=== PATIENT | female | born 1980 | race Caucasian/White ===

== ENCOUNTER 2020-03-07 00:17 | Inpatient (IN) | payer OTHER, SELFPAY ==
[2020-03-07] VITALS (18 sets, daily range): BP systolic 105–153; BP diastolic 39–79; PULSE 58–130; RESP 15–20; TEMP 37.1–39.2; O2SAT 97–100; BMI 28.8
--- NOTE | ~2020-03-07 | CT_ITS ---
EXAMINATION: CT abdomen pelvis wo con DATE: 03/07/2020 01:56 INDICATION: Right flank pain. TECHNIQUE: Computed tomography (CT) of the abdomen and pelvis was performed without intravenous contr ast. Automated exposure control and iterative reconstruction technique were employed. The dose-length product was 699.43 mGy-cm. COMPARISON: None. FINDINGS: The visualized portions of the lung bases demonstrate minimal atelectasis. No pleural effus ion. The heart size is normal. No pericardial effusion. The liver, gallbladder, spleen, pancreas, and adrenal glands are normal. There are 5 stones in right kidney measuring up to 3 mm. There is mild ri ght hydronephrosis and hydroureter. The distal right ureter is not well visualized. There is a 2 mm c alcification in right pelvis. There is focal volume loss of left kidney. There is a 2.1 cm partially cystic mass in left kidney. There is a 1 mm left kidney stone. There are no dilated loops of bowel. T he appendix is normal. There is trace pelvic ascites. There are no pathologically enlarged lymph node s. There is mild thoracolumbar spondylosis. IMPRESSION: 1. Mild right hydronephrosis and hydroureter. A 2 mm calcification in right pelvis may be a ureteral stone or phlebolith. 2. Small bilateral nonobstructing kidney stones. 3. 2.1 cm partially cystic mass in left kidney, which may be a hemorrhagic cyst or a neoplasm. Abdome n MRI or CT without and with contrast is recommended. Reviewed, dictated and finalized at location [facility] IMPRESSION: 1. Mild right hydronephrosis and hydroureter. A 2 mm calcification in right pel vis may be a ureteral stone or phlebolith. 2. Small bilateral nonobstructing kidney stones. 3. 2.1 cm partially cystic mass in left kidney, which may be a hemorrhagic cyst or a neoplasm. Abdomen MRI or CT without and with contrast is recommended.
--- NOTE | ~2020-03-07 | MR_ITS ---
EXAMINATION: MR abdomen wo/w con DATE: 03/07/2020 14:31 INDICATION: Left renal cyst. TECHNIQUE: Magnetic resonance imaging (MRI) of the abdomen was performed without and with 17 mL Multi Gary intravenous contrast. Sequences included coronal T2-weighted FS FSE, coronal and axial FIESTA F S, coronal LAVA-flex, axial LAVA, axial T2-weighted FSE, axial T1-weighted dual-echo FSPGR, axial STI R FSE, and axial DWI. Postcontrast sequences included coronal LAVA-flex and a time course of axial LA VA. COMPARISON: CT abdomen and pelvis 03/07/2020 FINDINGS: The liver, gallbladder, spleen, pancreas, adrenal glands, and right kidney are normal. The left kidne y demonstrates a focal area of volume loss. Within this area, there is a 2.6 x 1.6 cm thick-walled cy stic mass. The wall demonstrates decreased T2-weighted signal intensity, intermediate T1-weighted sig nal intensity, and contrast enhancement. There are no dilated loops of bowel. There are no pathologic ally enlarged lymph nodes. There is no free intraperitoneal fluid. IMPRESSION: 1. 2.6 cm Bosniak type III cystic lesion of left kidney within an area of focal kidney volume loss. G iven the history of previous kidney stone procedure, correlation with outside imaging is recommended because chronic hematoma may have this appearance. Reviewed, dictated and finalized at location [facility] IMPRESSION: 1. 2.6 cm Bosniak type III cystic lesion of left kidney within an area of focal kidney volume loss. Given the history of previous kidney stone procedure, judi elation with outside imaging is recommended because chronic hematoma may have t his appearance.
--- NOTE | 2020-03-07 00:36 | ECG_ITS ---
Measurements Intervals [place] Rate: 115 P: 61 GA: 136 QRS: 70 QRSD: 94 T: -16 QT: 314 QTc: 435 Interpretive Statements SINUS TACHYCARDIA BORDERLINE ST-T WAVE ABNORMALITY- ANTEROLAT/INF LEADS BASELINE ARTIFACT- V3 ABNORMAL ECG Electronically Signed On 03-07-2020 8:47:21 [employer] MACHINIST by Stefan Merino D.O.
--- NOTE | 2020-03-07 00:36 | ED.FEVER ---
HPI - Fever General Chief Complaint: Fever Stated Complaint: low back pain, fever Time Seen by Provider: 03/07/20 00:35 Source: patient Mode of arrival: ambulatory Limitations: no limitations History of Present Illness HPI Narrative: Patient is a 39-year-old female who presents for evaluation of fever and right-sided flank pain. Patient states she started to have some dysuria and pressure with urination approximately 24 hours ago. Patient states this evening she developed fever as well as rigors. She has had nausea and one episode of emesis. Patient with history of urinary tract infection and pyelonephritis. She also has a history of nephrolithiasis in 2011. Patient reports dull, aching right-sided flank pain that is not colicky or sharp in nature. She denies any current cough or shortness of breath. Patient did take a dose of ibuprofen prior to arrival. Related Data Home Medications Medication Instructions Recorded Confirmed norgestrel-ethinyl estradiol tablet 03/07/20 [Cryselle (28)] norgestrel-ethinyl estradiol tablet 03/07/20 [Low-Ogestrel (28)] Allergies Allergy/AdvReac Type Severity Reaction Status Date / Time Sulfa (Sulfonamide Allergy Unknown Skin Verified 03/07/20 00:28 Antibiotics) Reaction Review of Systems Review of Systems: Narrative: CONSTITUTIONAL: Denies fever, chills, or sweats. EYES: Denies visual changes, redness, or discharge. ENT: Denies rhinorrhea, congestion, sore throat, or otalgia. CARDIOVASCULAR: Denies chest pain, palpitations, or edema. RESPIRATORY: Denies cough or dyspnea. GASTROINTESTINAL: Reports lower abdominal pain, nausea and vomiting GENITOURINARY: Reports dysuria SKIN: Denies rash or itching. MUSCULOSKELETAL: Denies back pain, joint pain, or myalgia. NEUROLOGIC: Denies headache, numbness, or weakness. PSYCHIATRIC: Denies anxiety or depression. FOR[facility]LY [facility] Past Medical History Medical History (Updated 03/07/20 @ 03:11 by Bhumika Petty MD) Nephrolithiasis Ovarian cyst Surgical History Surgical History (Updated 03/07/20 @ 00:57 by Bhumika Petty MD) H/O wisdom tooth extraction Hx of breast biopsy Social History Social History Smoking status: Never smoker Exam Narrative: Exam Narrative: GENERAL: Awake, alert, conversant HEAD: Normocephalic, atraumatic. EYES: PERRLA and EOMI. ENT: Nares clear, no rhinorrhea or epistaxis. Mucous membranes moist. NECK: Supple. CHEST: No respiratory distress, breathing even and non labored HEART: Tachycardic rate, sinus rhythm ABDOMEN:Non distended, mild suprapubic tenderness, positive right flank tenderness EXTREMITIES: Normal range of motion. No edema. SKIN: Febrile, warm, dry, no rash. NEURO:No focal deficits. Alert and oriented x3 Course Vital Signs Vital signs: Vital Signs Temperature 39.2 C H 03/07/20 00:24 Pulse Rate 130 H 03/07/20 00:24 Respiratory Rate 20 03/07/20 00:24 Blood Pressure 153/76 H 03/07/20 00:24 Pulse Oximetry 99 03/07/20 00:24 Temperature 37.2 C 03/07/20 02:07 Pulse Rate 105 H 03/07/20 02:07 Respiratory Rate 20 03/07/20 02:07 Blood Pressure 119/56 L 03/07/20 02:07 Pulse Oximetry 98 03/07/20 02:07 MDM - Fever MDM Narrative Medical decision making narrative: Patient presented for evaluation of dysuria, right-sided flank pain. At the time of assessment, patient is tachycardic and febrile. No hypotension. Symptoms came seem consistent with pyelonephritis given dysuria and right flank pain. She does have a history of nephrolithiasis several years ago. IV access obtained and labs are drawn. Patient was given a 30 mL/kg fluid bolus and IV Tylenol. Patient urinalysis consistent with urinary tract infection. Patient was given IV Rocephin. CT scan shows evidence of right-sided hydronephrosis, perinephric stranding. There was no obvious identifiable ureteral stone, however the ureters were not well identified and due to hydronephrosis present, radiologi
[2020-03-07 01:12] LABS: Basophils Percent Auto 0.2 % (0.2-1.2); Eosinophils Absolute Auto 0.1 K/mm3 (0-0.3); Eosinophils Percent Auto 0.4 % (0-4.4); Hematocrit 38.9 % (37.0-47.0); Hemoglobin 13.1 g/dL (12.0-15.0); Immature Granulocyte Absolute 0.06 K/mm3 (0.00-0.031); Immature Granulocyte Percent A 0.5 % (0-0.5); Lymphocytes Absolute Auto 0.65 K/mm3 (0.9-3.2); Lymphocytes Percent Auto 4.9 % (18.3-44.2); Mean Corpuscular HGB Conc 33.7 g/dl (32-36); Mean Corpuscular Volume 94.9 fl (80-100); Mean Platelet Volume 10.2 fl (7.4-10.4); Monocytes Absolute Auto 0.7 K/mm3 (0.1-0.6); Monocytes Percent Auto 5.5 % (2.6-8.5); Neutrophils Absolute Auto 11.7 K/mm3 (1.3-6.7); Neutrophils Percent Auto 88.5 % (45.5-73.1); Platelet Count Result 206 k/mm3 (150-375); Red Cell Distribution Width 12.5 % (11.5-14.5); White Blood Count 13.2 K/mm3 (4.5-10.0)
[2020-03-07 01:18] LABS: Lactic Acid Reflex 1.4 mmol/L (0.7-2.1)
[2020-03-07 01:20] LABS: Alanine Aminotransferase 14 U/L (4-35); Alkaline Phosphatase 70 U/L (38-126); Anion Gap 7 mmol/L (8-16); Aspartate Amino Transferase 19 U/L (14-36); Bilirubin,Total 0.7 mg/dL (0.2-1.3); Blood Urea Nitrogen 14 mg/dL (7-17); CRP 3.7 mg/dL (<1.0); Calcium 9.1 mg/dL (8.4-10.2); Carbon Dioxide 26 mmol/L (22-30); Chloride 105 mmol/L (98-107); Estimated CRCL calculation 83 ml/min; Estimated Glomerular Filt Rate > 60; Glucose 136 mg/dL (65-105); Potassium 4.5 mmol/L (3.4-5.0); Sodium 138 mmol/L (137-145)
[2020-03-07 01:41] LABS: Add Urine Microscopic? YES; Appearance Urine Clear (Clear); Bilirubin Urine Negative (Negative); Blood Urine 1+ (Negative); Color Urine Yellow (Yellow); Glucose Urine UA Negative (Negative); Ketones Urine Negative (Negative); Leukocyte Esterase Ur 1+ LEU/UL (Negative); Mucus Urine Rare /lpf; Nitrate Urine Negative (Negative); Protein Urine 1+ mg/dL (Negative); Specific Grav Ur 1.015 (1.001-1.035); Squamous Epithelial Cell Urine Rare /hpf (Few); Urobilinogen Urine Negative mg/dL (<2.0); WBC Urine 31-50 /hpf
--- NOTE | 2020-03-07 04:16 | PM.IMHP ---
H&P: HPI History of Present Illness Date/Time: 03/07/20 04:16 Chief complaint: Pyelonephritis, possible infected kidney stone Narrative: This is a 39 year old female who presented to the hospital with fever, bladder pressure, and b/l flank pain for the past day. She denies any gross hematuria or overt dysuria. She decided to come to the hospital tonight when she developed fever. Right sided flank pain radiates towards the front. The patient has a history of previous left sided renal stones that required lithotripsy at [facility]. Her last UTI was when she was a teenager. She denies any decreased urine output. Associated symptoms include nausea and vomiting. CT Abd/pelvis demonstrated right-sided hydronephrosis, perinephric stranding. There was no obvious identifiable ureteral stone, however the ureters were not well identified and due to hydronephrosis present, radiologist could not rule out a infected kidney stone. She has been started on IV antibiotics. Urology, Dr. Santiago has been consulted by ER provider. Review of Systems Review of Systems: All systems reviewed & are unremarkable except as noted in HPI and below PMFSH Past Medical History Medical History (Updated 03/07/20 @ 05:44 by Corey Singleton MD) Nephrolithiasis Ovarian cyst Surgical History Surgical History (Updated 03/07/20 @ 00:57 by Bhumika Petty MD) H/O wisdom tooth extraction Hx of breast biopsy Family History Family History (Updated 03/07/20 @ 05:39 by Stevie Martinez RN) Mother Breast cancer Grandparent Diabetes mellitus Acute myocardial infarction Congestive heart failure Hypertension Non-Hodgkin lymphoma Social History Social History Smoking status: Never smoker Alcohol intake: current Drinks per week: 1 Substance use: never Substance use type: does not use Gender identity (if verbalized by the patient): Female Sexual Orientation (if Verbalized by the Patient): Straight or Heterosexual Spiritual care concerns: No Meds Home Medications and Allergies Home Medications Medication Instructions Recorded Confirmed Type Vitamin D3 5,000 unit PO WEEKLY 03/07/20 03/07/20 History norgestrel-ethinyl estradiol tablet 03/07/20 History [Cryselle (28)] norgestrel-ethinyl estradiol tablet 03/07/20 History [Low-Ogestrel (28)] Allergies Allergy/AdvReac Type Severity Reaction Status Date / Time Sulfa (Sulfonamide Allergy Unknown Skin Verified 03/07/20 05:29 Antibiotics) Reaction Vital Signs Vital Signs - 24 hr 03/07/20 00:24 03/07/20 01:02 03/07/20 02:07 Temperature 39.2 C H 37.2 C Pulse Rate 130 H 124 H 105 H Respiratory Rate 20 20 20 Blood Pressure 153/76 H 130/79 119/56 L Pulse Oximetry 99 97 98 03/07/20 02:15 03/07/20 02:17 03/07/20 02:30 Temperature Pulse Rate 98 102 H 100 Respiratory Rate 20 20 20 Blood Pressure 105/55 L Pulse Oximetry 98 98 98 03/07/20 02:31 03/07/20 03:02 03/07/20 03:17 Temperature Pulse Rate 100 103 H 96 Respiratory Rate 19 16 17 Blood Pressure 111/54 L Pulse Oximetry 97 98 98 03/07/20 03:30 03/07/20 03:45 03/07/20 04:02 Temperature Pulse Rate 101 H 95 110 H Respiratory Rate 17 19 15 Blood Pressure Pulse Oximetry 98 98 98 Exam Const: General: cooperative, alert, awake and other (febrile to touch++ ) Nutritional Appearance: well nourished Orientation/consciousness: patient oriented x3 HENMT: Head: normal to inspection General nose exam: Normal external nose present Face and sinus: normal facial exam Mouth: Yes Normal oral and palatal mucosa present and Yes oropharynx normal Eyes: Pupils: Equal, round and reactive pupils present EOM: EOMs intact bilaterally Neck: Neck: supple and no JVD Thyroid: thyroid normal Lymphatic: lymphadenopathy not noted Resp: Effort & Inspection: normal respiratory effort Auscultation: clear to auscultation bilaterally Cardio: Rate: tachycardic Rh
[2020-03-07] MEDS: ACETAMINOPHEN 325 MG TABLET 650 MG PO ×5 (05:14→23:59)
--- NOTE | 2020-03-07 05:36 | ADMGEN ---
This patient, Halle Mueller, was admitted to 3 [facility] Surg Room 317-01. Patient/family oriented to hospital policies and general routines including ID bracelet, bed and alarms, visiting hours, pain management, procedures, bathroom and other care routines, personal items, smoking policy, room service/diet, and visiting hours. Information on how to activate the Rapid Response Team has been discussed. Patient/Family are encouraged to report perceived risks to care and to ask questions if they do not understand what they are told or what they should do.
[2020-03-07] MEDS: SODIUM CHLORIDE 0.9% IV 1,000 ML 125 ML IV CONT (06:01)
[2020-03-07 06:45] LABS: Basophils Percent Auto 0.1 % (0.2-1.2); Eosinophils Percent Auto 0.1 % (0-4.4); Hematocrit 33.6 % (37.0-47.0); Hemoglobin 11.2 g/dL (12.0-15.0); Immature Granulocyte Absolute 0.05 K/mm3 (0.00-0.031); Immature Granulocyte Percent A 0.4 % (0-0.5); Lymphocytes Absolute Auto 0.42 K/mm3 (0.9-3.2); Lymphocytes Percent Auto 3.6 % (18.3-44.2); Mean Corpuscular HGB Conc 33.3 g/dl (32-36); Mean Corpuscular Hemoglobin 31.5 pg (26-34); Mean Corpuscular Volume 94.4 fl (80-100); Mean Platelet Volume 10.2 fl (7.4-10.4); Monocytes Absolute Auto 0.4 K/mm3 (0.1-0.6); Monocytes Percent Auto 3.7 % (2.6-8.5); Neutrophils Absolute Auto 10.7 K/mm3 (1.3-6.7); Neutrophils Percent Auto 92.1 % (45.5-73.1); Platelet Count Result 168 k/mm3 (150-375); Red Blood Count 3.56 M/mm3 (4.2-5.4); Red Cell Distribution Width 12.3 % (11.5-14.5); White Blood Count 11.6 K/mm3 (4.5-10.0)
[2020-03-07 06:57] LABS: Anion Gap 9 mmol/L (8-16); Blood Urea Nitrogen 9 mg/dL (7-17); Calcium 7.5 mg/dL (8.4-10.2); Carbon Dioxide 20 mmol/L (22-30); Chloride 108 mmol/L (98-107); Estimated CRCL calculation 107 ml/min; Estimated Glomerular Filt Rate > 60; Glucose 135 mg/dL (65-105); Potassium 3.8 mmol/L (3.4-5.0); Sodium 137 mmol/L (137-145)
--- NOTE | 2020-03-07 07:16 | WPDURCON ---
Assessment and Plan Assessment and plan (1) Pyelonephritis: Code(s): N12 - Tubulo-interstitial nephritis, not specified as acute or chronic Status: Acute Assessment and Plan: I do not see any significant hydronephrosis. I do not see an obstructing ureteral stone. Would treat with broad-spectrum antibiotics and tailored to p.o. antibiotics for 14 days once culture has returned. (2) Abnormal urinalysis: Code(s): R82.90 - Unspecified abnormal findings in urine Status: Acute Assessment and Plan: Urine culture is pending. Continue broad-spectrum antibiotics (3) Right renal stone: Code(s): N20.0 - Calculus of kidney Status: Acute Assessment and Plan: Punctate and nonobstructing. She has a history of nephrolithiasis requiring lithotripsy in the past. This current small stone requires treatment. Urology Consult Note HPI Date Seen: 03/07/20 Requesting Physician: Corey Singleton MD Primary Care Provider: Taylor Simons DO Consult Narrative Narrative: Halle Mueller is a 39 year old female who has a previous history of nephrolithiasis. Several years ago she underwent lithotripsy by 1 of my partners in [place]. She started having fever on Saturday night at about 11:00 p.m.. This is associated with some urgency and some right greater than left flank pain. 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 However fevers returned. After discussion with colleagues she decided it was best to come to the hospital to get evaluated. A CT scan was done. The report is not official or in the chart but the official reading had some conflicting information. It reported mild right hydronephrosis but could not rule out ureteral stone due to the lack of ureteralnephrosis. I have looked at the CAT scan myself. I do not see significant hydronephrosis. I do not see significant perinephric stranding. I do not see ureteral stone. She does have a punctate right renal stone which is nonobstructing. She is admitted with antibiotics. Her flank pain has improved. She does not have significant history of recurring urinary tract infections Review of Systems Review of Systems: All systems reviewed & are unremarkable except as noted in HPI and below PMFSH Past Medical History Medical History (Updated 03/07/20 @ 07:20 by Paolo Santiago MD) Nephrolithiasis Ovarian cyst Surgical History Surgical History (Updated 03/07/20 @ 00:57 by Bhumika Petty MD) H/O wisdom tooth extraction Hx of breast biopsy Family History Family History (Updated 03/07/20 @ 05:39 by Stevie Martinez RN) Mother Breast cancer Grandparent Diabetes mellitus Acute myocardial infarction Congestive heart failure Hypertension Non-Hodgkin lymphoma Social History Social History Smoking status: Never smoker Alcohol intake: current Drinks per week: 1 Substance use: never Substance use type: does not use Gender identity (if verbalized by the patient): Female Sexual Orientation (if Verbalized by the Patient): Straight or Heterosexual Spiritual care concerns: No Meds Home Medications and Allergies Home Medications Medication Instructions Recorded Confirmed Type Vitamin D3 5,000 unit PO WEEKLY 03/07/20 03/07/20 History norgestrel-ethinyl estradiol 1 tablet PO DAILY 03/07/20 03/07/20 History [Cryselle (28)] norgestrel-ethinyl estradiol 1 tablet PO DAILY 03/07/20 03/07/20 History [Low-Ogestrel (28)] Allergies Allergy/AdvReac Type Severity Reaction Status Date / Time Sulfa (Sulfonamide Allergy Unknown Skin Verified 03/07/20 05:29 Antibiotics) Reaction Vital Signs Vital Signs - 24 hr 03/07/20 00:24 03/07/20 01:02 03/07/20 02:07 Temperature 102.5 F H 98.9 F Pulse Rate 130 H 124 H 105 H Respiratory Rate 20 20 20 Blood Pressure 153/76 H 130/79 119/56 L Pulse Oximetry 99 97 98 03/07/20 02:15 03/07/20 02:17
[2020-03-07] MEDS: ONDANSETRON INJ 4 MG/2 ML VIAL IV PUSH (10:37)
--- NOTE | 2020-03-07 11:38 | PM.IMPN ---
Progress Note: A&P Assessment and Plan (1) Sepsis: Code(s): A41.9 - Sepsis, unspecified organism Status: Acute Assessment and Plan: Supported by fever, leukocytosis, tachycardia. The source of sepsis appears to be urinary. Continue IV ceftriaxone. Lactic acid was 1.4. She has received IV fluid rehydration and she is going to try clear liquids for lunch. Blood and urine cultures were obtained and are pending. Monitor acid-base status and urine output. (2) Pyelonephritis: Code(s): N12 - Tubulo-interstitial nephritis, not specified as acute or chronic Status: Acute Assessment and Plan: She reports right flank pain and urgency. Urinalysis is suspicious for UTI. Continue IV antibiotics, IV fluids, pain control as needed, antiemetics and antipyretics. Urine culture pending. (3) Leukocytosis: Code(s): D72.829 - Elevated white blood cell count, unspecified Status: Acute Assessment and Plan: Secondary to pyelonephritis. WBC is improving. Continue to monitor CBC daily. (4) Hydronephrosis: Code(s): N13.30 - Unspecified hydronephrosis Status: Acute Assessment and Plan: Urology has been consulted by ER provider. Continue Urology recommendations. (5) Left kidney mass: Code(s): N28.89 - Other specified disorders of kidney and ureter Status: Acute Assessment and Plan: CT abd/pelvis showed 2.1 cm partially cystic mass in left kidney, which may be a hemorrhagic cyst or a neoplasm. Further evaluation was recommended so MRI abd/pelvis will be ordered. Subjective Date/time seen: 03/07/20 11:38 Mrs. Mueller is a 39 y.o. female with PMH significant for nephrolithiasis who is seen in follow-up for pyelonephritis. She is still having fevers and chills. Her pain has improved. She reports urinary urgency. She denies leg swelling and pain. She denies chest pain and dyspnea. She is not having any nausea and vomiting. She would like to try clear liquids today. Review of Systems Review of Systems: All systems reviewed & are unremarkable except as noted in HPI and below Exam Narrative: Exam Narrative: General: Well-developed, well-nourished, and ill-appearing 39 y.o. female who is lying semi-recumbent in bed in no acute distress. HEENT: Normocephalic and atraumatic. Oral mucosa moist. Neck: Supple. Cardiac: Regular rate and rhythm. S1 and S2 normal. Lungs: Lungs are clear to auscultation bilaterally. Abdomen: Bowel sounds are normoactive. Abdomen is soft, non-distended, and mildly tender in the right upper quadrant and suprapubic area. : No CVA tenderness. Extremities: No lower extremity edema. Palpable DP and PT bilaterally. Neurological: Alert. Exam non-focal to casual conversation. Speech is clear. Skin: febrile to touch. No rashes or lesions. Psychiatric: Judgment and insight intact. Pleasant mood and appropriate affect. Objective Data Vital Signs Vital Signs: Vital Signs - 24 hr 03/07/20 00:24 03/07/20 01:02 03/07/20 02:07 Temperature 102.5 F H 98.9 F Pulse Rate 130 H 124 H 105 H Respiratory Rate 20 20 20 Blood Pressure 153/76 H 130/79 119/56 L Pulse Oximetry 99 97 98 03/07/20 02:15 03/07/20 02:17 03/07/20 02:30 Temperature Pulse Rate 98 102 H 100 Respiratory Rate 20 20 20 Blood Pressure 105/55 L Pulse Oximetry 98 98 98 03/07/20 02:31 03/07/20 03:02 03/07/20 03:17 Temperature Pulse Rate 100 103 H 96 Respiratory Rate 19 16 17 Blood Pressure 111/54 L Pulse Oximetry 97 98 98 03/07/20 03:30 03/07/20 03:45 03/07/20 04:02 Temperature Pulse Rate 101 H 95 110 H Respiratory Rate 17 19 15 Blood Pressure Pulse Oximetry 98 98 98 03/07/20 05:18 03/07/20 05:33 Temperature 98.8 F 98.8 F Pulse Rate 58 L 58 L Respiratory Rate 20 20 Blood Pressure 122/39 L 122/39 L Pulse Oximetry 100 100 Intake/Output Intake/Output: Intake & Output 03/04/20 03/05/20 03/06/20
[2020-03-07] MEDS: SODIUM CHLORIDE 0.9% IV 1,000 ML 75 ML IV CONT (13:09)
[2020-03-07] MEDS: KETOROLAC 30 MG/ML VIAL (*BKC) IV PUSH (23:11)
[2020-03-08] VITALS (8 sets, daily range): BP systolic 108–134; BP diastolic 65–85; PULSE 84–107; RESP 16–18; TEMP 36.8–38.2; O2SAT 100
[2020-03-08] MEDS: SODIUM CHLORIDE 0.9% IV 1,000 ML 75 ML IV CONT ×2 (01:19→15:44)
[2020-03-08 06:42] LABS: Basophils Percent Auto 0.2 % (0.2-1.2); Eosinophils Percent Auto 0.3 % (0-4.4); Hematocrit 33.6 % (37.0-47.0); Hemoglobin 10.9 g/dL (12.0-15.0); Immature Granulocyte Absolute 0.09 K/mm3 (0.00-0.031); Immature Granulocyte Percent A 0.8 % (0-0.5); Lymphocytes Percent Auto 7.6 % (18.3-44.2); Mean Corpuscular HGB Conc 32.4 g/dl (32-36); Mean Corpuscular Hemoglobin 31.1 pg (26-34); Mean Corpuscular Volume 95.7 fl (80-100); Mean Platelet Volume 10.4 fl (7.4-10.4); Monocytes Absolute Auto 0.8 K/mm3 (0.1-0.6); Monocytes Percent Auto 6.7 % (2.6-8.5); Neutrophils Absolute Auto 10.1 K/mm3 (1.3-6.7); Neutrophils Percent Auto 84.4 % (45.5-73.1); Platelet Count Result 164 k/mm3 (150-375); Red Blood Count 3.51 M/mm3 (4.2-5.4); Red Cell Distribution Width 12.7 % (11.5-14.5); White Blood Count 11.9 K/mm3 (4.5-10.0)
[2020-03-08 07:18] LABS: Anion Gap 6 mmol/L (8-16); Blood Urea Nitrogen 6 mg/dL (7-17); Calcium 7.8 mg/dL (8.4-10.2); Carbon Dioxide 22 mmol/L (22-30); Chloride 108 mmol/L (98-107); Estimated CRCL calculation 107 ml/min; Estimated Glomerular Filt Rate > 60; Glucose 113 mg/dL (65-105); Potassium 3.8 mmol/L (3.4-5.0); Sodium 136 mmol/L (137-145)
[2020-03-08 07:33] LABS: CRP 21.6 mg/dL (<1.0)
[2020-03-08] MEDS: KETOROLAC 30 MG/ML VIAL (*BKC) IV PUSH ×2 (09:37→23:03)
--- NOTE | 2020-03-08 13:18 | PM.IMPN ---
Progress Note: A&P Assessment and Plan (1) Sepsis: Code(s): A41.9 - Sepsis, unspecified organism Status: Acute Assessment and Plan: Supported by fever, leukocytosis, tachycardia. The source of sepsis appears to be urinary. Continue IV ceftriaxone. Lactic acid was 1.4. She has received IV fluid rehydration and she is going to try clear liquids for lunch. Blood and urine cultures were obtained and are pending. Monitor acid-base status and urine output. (2) Pyelonephritis: Code(s): N12 - Tubulo-interstitial nephritis, not specified as acute or chronic Status: Acute Assessment and Plan: She reports right flank pain and urgency.Improving. Urine culture pending. (3) Leukocytosis: Code(s): D72.829 - Elevated white blood cell count, unspecified Status: Acute Assessment and Plan: Secondary to pyelonephritis. WBC is improving. (4) Hydronephrosis: Code(s): N13.30 - Unspecified hydronephrosis Status: Acute Assessment and Plan: See above. Continue Urology recommendations. (5) Left kidney mass: Code(s): N28.89 - Other specified disorders of kidney and ureter Status: Acute Assessment and Plan: CT abd/pelvis showed 2.1 cm partially cystic mass in left kidney, which may be a hemorrhagic cyst or a neoplasm. likely hematoma, follow urology recommendations. Subjective Date/time seen: 03/08/20 13:18 Interval history: Mrs. Mueller is a 39 y.o. female with PMH significant for nephrolithiasis who is seen in follow-up for R pyelonephritis. 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 Urology consulted continue IV abx until cultures are back then change to oral ABX. Pt is known to have a left renal mass since 2011. CT here shows 2.1 cm partially cystic mass in left kidney. There is a 1 mm left kidney stone. pt has seen MDs in [facility] for this. Pt had lithotripsy there. Pt can follow there if she wishes to later or can follow here. Review of Systems Review of Systems: All systems reviewed & are unremarkable except as noted in HPI and below Exam Narrative: Exam Narrative: General: Well-developed younger lady. HEENT: Normocephalic Cardiac: Regular rate and rhythm. S1 and S2 normal. Lungs: Lungs are clear to auscultation bilaterally. Abdomen: Bowel sounds are normoactive. Abdomen is soft, non-distended, no CVA tenderness Extremities: No lower extremity edema. Neurological: Alert. Exam non-focal to casual conversation. Speech is clear. Skin: febrile to touch. No rashes or lesions. Psychiatric: Judgment and insight intact. Pleasant mood and appropriate affect. Objective Data Vital Signs Vital Signs: Vital Signs - 24 hr 03/07/20 14:00 03/07/20 14:50 03/07/20 22:00 Temperature 37.4 C 38.3 C H 37.1 C Pulse Rate 86 110 H Respiratory Rate 18 18 Blood Pressure 140/69 115/56 L Pulse Oximetry 99 99 03/07/20 23:59 03/08/20 00:59 03/08/20 05:45 Temperature 38.2 C H 37.1 C 36.8 C Pulse Rate 84 Respiratory Rate 18 Blood Pressure 108/65 Pulse Oximetry 100 Intake/Output Intake/Output: Intake & Output 03/05/20 03/06/20 03/07/20 03/08/20 23:59 23:59 23:59 23:59 Intake Total 4130 1720 Output Total 900 300 Balance 3230 1420 Meds/Results Medications: Active Medications Generic Name Dose Route Start Last Admin Trade Name Freq PRN Reason Stop Dose Admin Acetaminophen 650 mg 03/07/20 04:30 03/07/20 23:59 Acetaminophen 325 Mg Tablet PO 650 mg Q4H PRN Administration Mild Pain (1-3) or Fever Sodium Chloride 1,000 mls @ 75 mls/hr 03/07/20 03:35 03/08/20 12:13 Normal Saline Iv IV CONT 0 mls/hr .[id number] ABIDA Infusion Ceftriaxone Sodium/Dextrose 1 gm in 50 mls @ 100 mls/hr 03/08/20 02:00 03/08/20 01:49 Rocephin 1 Gm/D5w 50 Ml IVPB Infused Q24H ABIDA Infusion Ketorolac Tromethamine 30 mg 03/07/20 23:04 03/08/20 09:37 Ketorol
[2020-03-08] MEDS: ACETAMINOPHEN 325 MG TABLET 650 MG PO ×2 (15:45→23:02)
[2020-03-09] MEDS: SODIUM CHLORIDE 0.9% IV 1,000 ML 75 ML IV CONT ×2 (05:45→21:52)
[2020-03-09 06:00] VITALS: BP 110/47; PULSE 76; RESP 16; TEMP 36.7; O2SAT 100
[2020-03-09 06:24] LABS: Hemoglobin 10.4 g/dL (12.0-15.0); Mean Corpuscular HGB Conc 32.5 g/dl (32-36); Mean Corpuscular Hemoglobin 31.1 pg (26-34); Mean Corpuscular Volume 95.8 fl (80-100); Mean Platelet Volume 10.2 fl (7.4-10.4); Platelet Count Result 160 k/mm3 (150-375); Red Blood Count 3.34 M/mm3 (4.2-5.4); Red Cell Distribution Width 12.5 % (11.5-14.5); White Blood Count 7.6 K/mm3 (4.5-10.0)
[2020-03-09 06:43] LABS: Anion Gap 4 mmol/L (8-16); Blood Urea Nitrogen 6 mg/dL (7-17); Calcium 7.6 mg/dL (8.4-10.2); Carbon Dioxide 23 mmol/L (22-30); Chloride 110 mmol/L (98-107); Estimated CRCL calculation 123 ml/min; Estimated Glomerular Filt Rate > 60; Glucose 106 mg/dL (65-105); Potassium 3.8 mmol/L (3.4-5.0); Sodium 137 mmol/L (137-145)
--- NOTE | 2020-03-09 12:42 | WPDUROPN2 ---
Progress Note: A&P Assessment and Plan (1) Pyelonephritis: Code(s): N12 - Tubulo-interstitial nephritis, not specified as acute or chronic Status: Acute Assessment and Plan: UC with pansensitive E Coli. Blood cultures pending. ONce afebrile 24 hours and BC results neg can discharge with oral abx. (2) Left kidney mass: Code(s): N28.89 - Other specified disorders of kidney and ureter Status: Acute Additional Plan MRI reveal complex lesion but had this lesion in 2011 and felt to be a complex cyst measuring 1.2 cm at the time. Will need re-imaging in about 3 months to confirm stability. Subjective Subjective Date/Time Seen: 03/09/20 12:42 Principal diagnosis: pyelonephritis Interval history: Feeling better but had a fever last night Review of Systems Review of Systems: All systems reviewed & are unremarkable except as noted in HPI and below Exam Const: General: cooperative Objective Data Vital Signs Vital Signs: Vital Signs - 24 hr 03/08/20 14:00 03/08/20 15:45 03/08/20 16:45 Temperature 37.1 C 37.7 C H 37.3 C Pulse Rate 102 H Respiratory Rate 18 Blood Pressure 115/65 Pulse Oximetry 100 03/08/20 19:04 03/08/20 22:00 03/08/20 23:02 Temperature 37.6 C H 38.2 C H 37.8 C H Pulse Rate 107 H Respiratory Rate 16 Blood Pressure 134/85 Pulse Oximetry 100 03/09/20 06:00 Temperature 36.7 C Pulse Rate 76 Respiratory Rate 16 Blood Pressure 110/47 L Pulse Oximetry 100 Intake/Output Intake/Output: Intake & Output 03/06/20 03/07/20 03/08/20 03/09/20 23:59 23:59 23:59 23:59 Intake Total 4130 3670 1660 Output Total 900 1600 700 Balance 3230 2070 960 Meds/Results Medications: Active Medications Generic Name Dose Route Start Last Admin Trade Name Freq PRN Reason Stop Dose Admin Acetaminophen 650 mg 03/07/20 04:30 03/08/20 23:02 Acetaminophen 325 Mg Tablet PO 650 mg Q4H PRN Administration Mild Pain (1-3) or Fever Sodium Chloride 1,000 mls @ 75 mls/hr 03/07/20 03:35 03/09/20 05:45 Normal Saline Iv IV CONT 75 mls/hr .[id number] ABIDA Administration Ceftriaxone Sodium/Dextrose 1 gm in 50 mls @ 100 mls/hr 03/08/20 02:00 03/09/20 04:01 Rocephin 1 Gm/D5w 50 Ml IVPB Infused Q24H ABIDA Infusion Morphine Sulfate 4 mg 03/07/20 03:34 Morphine Sulfate (*Crx) 4 Mg/Ml Inj IV PUSH Q2H PRN Pain Rated 7-10 Ondansetron HCl 4 mg 03/07/20 03:34 03/07/20 10:37 Ondansetron Inj 4 Mg/2 Ml Vial IV PUSH 4 mg Q4H PRN Administration Nausea Radiology Results: ITS Impressions Abdomen/Pelvis CT 03/07/20 08:40 IMPRESSION: 1. Mild right hydronephrosis and hydroureter. A 2 mm calcification in right pelvis may be a ureteral stone or phlebolith. 2. Small bilateral nonobstructing kidney stones. 3. 2.1 cm partially cystic mass in left kidney, which may be a hemorrhagic cyst or a neoplasm. Abdomen MRI or CT without and with contrast is recommended. Abdomen MRI 03/07/20 14:52 IMPRESSION: 1. 2.6 cm Bosniak type III cystic lesion of left kidney within an area of focal kidney volume loss. Given the history of previous kidney stone procedure, correlation with outside imaging is recommended because chronic hematoma may have this appearance. Labs Labs: Laboratory Results - last 24 hr 03/09/20 03/09/20 05:51 05:51 WBC 7.6 RBC 3.34 L Hgb 10.4 L Hct 32.0 L MCV 95.8 MCH 31.1 MCHC 32.5 RDW 12.5 Plt Count 160 MPV 10.2 Sodium 137 Potassium 3.8 Chloride 110 H Carbon Dioxide 23 Anion Gap 4 L BUN 6 L Creatinine 0.60 L Estim Creat Clear Calc 123 Estimated GFR > 60 Glucose 106 H Calcium 7.6 L Quality VTE Prophylaxis VTE prophylaxis: mechanical ordered
--- NOTE | 2020-03-09 12:56 | PM.IMPN ---
Progress Note: A&P Assessment and Plan (1) Sepsis: Code(s): A41.9 - Sepsis, unspecified organism Status: Acute Assessment and Plan: Supported by fever, leukocytosis, tachycardia. The source of sepsis appears to be urinary. Continue IV ceftriaxone. awaiting BC. And fever free state. (2) Pyelonephritis: Code(s): N12 - Tubulo-interstitial nephritis, not specified as acute or chronic Status: Acute Assessment and Plan: She reports right flank pain and urgency.Improving. Urine culture reported, BC is pending. (3) Leukocytosis: Code(s): D72.829 - Elevated white blood cell count, unspecified Status: Acute Assessment and Plan: Secondary to pyelonephritis. WBC is NL. (4) Hydronephrosis: Code(s): N13.30 - Unspecified hydronephrosis Status: Acute Assessment and Plan: See above. Continue Urology recommendations. (5) Left kidney mass: Code(s): N28.89 - Other specified disorders of kidney and ureter Status: Acute Assessment and Plan: CT abd/pelvis showed 2.1 cm partially cystic mass in left kidney, which may be a hemorrhagic cyst or a neoplasm. likely hematoma, follow urology recommendations. Subjective Date/time seen: 03/09/20 12:56 Interval history: Mrs. Mueller is a 39 y.o. female with PMH significant for nephrolithiasis who is seen in follow-up for R pyelonephritis. UC reported as ecoli. Pt is on iv rocephin, pt had a fever last night. 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 Urology consulted continue IV abx until blood cultures are back and pt is fever free for 24 hours, then change to oral ABX. Pt is known to have a left renal mass since 2011. CT here shows 2.1 cm partially cystic mass in left kidney. There is a 1 mm left kidney stone. pt has seen MDs in [facility] for this. Pt had lithotripsy there. Pt can follow there if she wishes to later or can follow here. Review of Systems Review of Systems: All systems reviewed & are unremarkable except as noted in HPI and below Exam Narrative: Exam Narrative: General: Well-developed younger lady. HEENT: Normocephalic Cardiac: Regular rate and rhythm. S1 and S2 normal. Lungs: Lungs are clear to auscultation bilaterally. Abdomen: Bowel sounds are normoactive. Abdomen is soft, non-distended, no CVA tenderness Extremities: No lower extremity edema. Neurological: Alert. Exam non-focal to casual conversation. Speech is clear. Skin: febrile to touch. No rashes or lesions. Psychiatric: Judgment and insight intact. Pleasant mood and appropriate affect. Objective Data Vital Signs Vital Signs: Vital Signs - 24 hr 03/08/20 14:00 03/08/20 15:45 03/08/20 16:45 Temperature 37.1 C 37.7 C H 37.3 C Pulse Rate 102 H Respiratory Rate 18 Blood Pressure 115/65 Pulse Oximetry 100 03/08/20 19:04 03/08/20 22:00 03/08/20 23:02 Temperature 37.6 C H 38.2 C H 37.8 C H Pulse Rate 107 H Respiratory Rate 16 Blood Pressure 134/85 Pulse Oximetry 100 03/09/20 06:00 Temperature 36.7 C Pulse Rate 76 Respiratory Rate 16 Blood Pressure 110/47 L Pulse Oximetry 100 Intake/Output Intake/Output: Intake & Output 03/06/20 03/07/20 03/08/20 03/09/20 23:59 23:59 23:59 23:59 Intake Total 4130 3670 1660 Output Total 900 1600 700 Balance 3230 2070 960 Meds/Results Medications: Active Medications Generic Name Dose Route Start Last Admin Trade Name Freq PRN Reason Stop Dose Admin Acetaminophen 650 mg 03/07/20 04:30 03/08/20 23:02 Acetaminophen 325 Mg Tablet PO 650 mg Q4H PRN Administration Mild Pain (1-3) or Fever Sodium Chloride 1,000 mls @ 75 mls/hr 03/07/20 03:35 03/09/20 05:45 Normal Saline Iv IV CONT 75 mls/hr .[id number] ABIDA Administration Ceftriaxone Sodium/Dextrose 1 gm in 50 mls @ 100 mls/hr 03/08/20 02:00 03/09/20 04:01 Rocephin 1 Gm/D5w 50 Ml IVPB Infused Q24H ABIDA I
[2020-03-09 14:00] VITALS: BP 124/64; PULSE 105; RESP 20; TEMP 37.3; O2SAT 100
[2020-03-09 21:56] VITALS: BP 137/79; PULSE 75; RESP 18; TEMP 37; O2SAT 100
[2020-03-10] MEDS: KETOROLAC 30 MG/ML VIAL (*BKC) IV PUSH (00:27)
[2020-03-10 05:44] VITALS: BP 119/70; PULSE 71; RESP 18; TEMP 36.8; O2SAT 98
--- NOTE | 2020-03-10 08:02 | WPDUROPN2 ---
Progress Note: A&P Assessment and Plan (1) Pyelonephritis: Code(s): N12 - Tubulo-interstitial nephritis, not specified as acute or chronic Status: Acute Assessment and Plan: multidrug sensitive E coli. Hopefully can transition to p.o. antibiotics and go home. Should follow up with Dr. Gaming or Pamela as an outpatient (2) Left kidney mass: Code(s): N28.89 - Other specified disorders of kidney and ureter Status: Acute Assessment and Plan: likely a chronic hematoma. Will monitor as an outpatient Subjective Subjective Date/Time Seen: 03/10/20 08:02 She feels well. Her urine culture shows multidrug sensitive E coli. She is quite eager to be discharged Exam Const: General: cooperative and healthy appearing HENMT: Mouth: Yes Normal oral and palatal mucosa present Resp: Effort & Inspection: normal respiratory effort and able to speak in complete sentences Skin: General skin exam: normal color Neuro: General: patient oriented x3 Objective Data Vital Signs Vital Signs: Vital Signs - 24 hr 03/09/20 14:00 03/09/20 21:56 03/10/20 05:44 Temperature 99.1 F 98.6 F 98.3 F Pulse Rate 105 H 75 71 Respiratory Rate 20 18 18 Blood Pressure 124/64 137/79 119/70 Pulse Oximetry 100 100 98 Intake/Output Intake/Output: Intake & Output 03/07/20 03/08/20 03/09/20 03/10/20 23:59 23:59 23:59 23:59 Intake Total 4130 3670 3640 300 Output Total 900 1600 700 Balance 3230 2070 2940 300 Meds/Results Medications: Active Medications Generic Name Dose Route Start Last Admin Trade Name Freq PRN Reason Stop Dose Admin Acetaminophen 650 mg 03/07/20 04:30 03/08/20 23:02 Acetaminophen 325 Mg Tablet PO 650 mg Q4H PRN Administration Mild Pain (1-3) or Fever Sodium Chloride 1,000 mls @ 75 mls/hr 03/07/20 03:35 03/09/20 21:52 Normal Saline Iv IV CONT 75 mls/hr .[id number] ABIDA Administration Ceftriaxone Sodium/Dextrose 1 gm in 50 mls @ 100 mls/hr 03/08/20 02:00 03/10/20 01:00 Rocephin 1 Gm/D5w 50 Ml IVPB Infused Q24H ABIDA Infusion Ketorolac Tromethamine 30 mg 03/10/20 00:11 03/10/20 00:27 Ketorolac 30 Mg/Ml Vial (*Bkc) IV PUSH 30 mg Q6H PRN Administration Pain Rated 4-6 Morphine Sulfate 4 mg 03/07/20 03:34 Morphine Sulfate (*Crx) 4 Mg/Ml Inj IV PUSH Q2H PRN Pain Rated 7-10 Ondansetron HCl 4 mg 03/07/20 03:34 03/07/20 10:37 Ondansetron Inj 4 Mg/2 Ml Vial IV PUSH 4 mg Q4H PRN Administration Nausea Radiology Results: ITS Impressions Abdomen/Pelvis CT 03/07/20 08:40 IMPRESSION: 1. Mild right hydronephrosis and hydroureter. A 2 mm calcification in right pelvis may be a ureteral stone or phlebolith. 2. Small bilateral nonobstructing kidney stones. 3. 2.1 cm partially cystic mass in left kidney, which may be a hemorrhagic cyst or a neoplasm. Abdomen MRI or CT without and with contrast is recommended. Abdomen MRI 03/07/20 14:52 IMPRESSION: 1. 2.6 cm Bosniak type III cystic lesion of left kidney within an area of focal kidney volume loss. Given the history of previous kidney stone procedure, correlation with outside imaging is recommended because chronic hematoma may have this appearance. Quality VTE Prophylaxis VTE prophylaxis: mechanical ordered
--- NOTE | 2020-03-10 10:07 | PM.DS ---
DS: Admitting Diagnosis Admitting Diagnosis Admitting Diagnosis: Pyelonephritis, possible infected kidney stone DS: Discharge Diagnosis Discharge Diagnosis (1) Sepsis: Code(s): A41.9 - Sepsis, unspecified organism Status: Acute Assessment and Plan: -----Resolved. Supported on admission by fever, leukocytosis, tachycardia. The source of sepsis appears to be urinary. Patient received IV ceftriaxone while she was in the hospital and discharged on cefdinir. Her urine culture came back E coli and the blood cultures are negative. (2) Pyelonephritis: Code(s): N12 - Tubulo-interstitial nephritis, not specified as acute or chronic Status: Acute Assessment and Plan: --------She reports right flank pain and urgency. Improving. As above (3) Leukocytosis: Code(s): D72.829 - Elevated white blood cell count, unspecified Status: Acute Assessment and Plan: ------resolved with treatment. (4) Hydronephrosis: Code(s): N13.30 - Unspecified hydronephrosis Status: Acute Assessment and Plan: -----seen by Urology, follow-up scan scheduled. (5) Left kidney mass: Code(s): N28.89 - Other specified disorders of kidney and ureter Status: Acute Assessment and Plan: -----CT abd/pelvis showed 2.1 cm partially cystic mass in left kidney, which may be a hemorrhagic cyst or a neoplasm. likely hematoma, continue to follow with urology DS: Summary Hospital Course Reason for hospitalization: Flank pain, sepsis Hospital Course: Patient is a 39-year-old female who presented emergency room for fever, flank pain and sepsis found to have pyelonephritis. Initial white blood cell count 13.2. CT shows evidence of right-sided hydronephrosis with perinephric stranding. Patient was admitted to the hospitalist service and started on ceftriaxone. Urology was consulted and recommended 14 days of oral antibiotics and follow-up imaging. The patient improved with this treatment throughout her hospital stay. Her fever resolved and her leukocytosis improved as well. Her blood cultures remain negative. The day of discharge the patient felt much better. She was educated about the worrisome signs and symptoms to come back to emergency room for was discharged stable condition. Status at Discharge Functional status at discharge: independent ambulation Overall status at discharge: patient is back to baseline Time Spent with Patient Time attestation: Total time spent providing and/or coordinating discharge services:34 mion Time spent: Greater than 30 minutes Exam Narrative: Exam Narrative: General: Well developed well nourished patient in NAD HEENT: normocephalic Neck: supple Neuro: Alert and oriented x4 CV:RRR Resp:CTA Abd: Soft, non distended. No pain to palpation. Positive bowel sounds Extremities: No swelling, erythema, or pain to palpation. DS: Data Data Completed and Pending Labs on day of discharge: Preliminary micro results at discharge 03/07/20 00:51 Blood Culture - Preliminary Blood 03/07/20 00:51 Blood Culture - Preliminary Blood Discharge Plan Discharge Attending physician on discharge: Arnaldo Almaraz Consulting providers: Paolo Santiago ; Stefan Merino ; Kevin Valdez V. ; Oli Mcdonald Discharging Clinician: Venita Brasher Patient Disposition: Home, Self-Care Activity: as tolerated Diet: as tolerated and regular Discharge Instructions: -Please note your medications have changed. Take all of your antibiotics even if you start to feel better. As discussed, this can interact with her control and cause it to be less efficacious. Please use alternative control options - follow-up with urology as recommended. Call their office to make an appointment. You need to repeat MRI as discussed. They will order this for you - follow-up with your primary care physician in 1-2 w
== END 2020-03-10 11:20 | disposition home or self-care (01) | DRG 872 ==
LOC: ANHED 04:07 → ANH3MEDSUR 04:18
PROVIDERS: Physician Assistant; Admitting Provider Family Medicine; Emergency Provider Emergency Medicine; PCP Family Medicine; Visit Provider Family Medicine
DX: A41.9 Sepsis, unspecified organism (principal); N13.6 Pyonephrosis; B96.20 Unspecified Escherichia coli [E. coli] as the cause of diseases classified elsewhere; N28.89 Other specified disorders of kidney and ureter; Z87.442 Personal history of urinary calculi; Z79.899 Other long term (current) drug therapy; Z88.2 Allergy status to sulfonamides
CPT/HCPCS: 36415; 74176; 74183; 80048; 80053; 81001; 81025; 83605; 85025; 85027; 86140; 87040; 87077; 87086; 87088; 87186; 93005; 96361; 96365; 96375; 96376; 99285; A9270; A9577; G0378; J0131; J0696; J1885; J2405; J7030

== ENCOUNTER 2023-02-21 22:34 | Outpatient (NON) | payer OTHER, SELFPAY | END 2023-02-21 22:35 | disposition home or self-care (01) | LOC: ANHGOSHLAB 22:36 | PROVIDERS: PCP Family Medicine; Visit Provider Nurse Practitioner | DX: R39.15 Urgency of urination (principal) | CPT/HCPCS: 87086; 87088 ==

== ENCOUNTER 2025-03-16 15:18 | Outpatient (CLI) | payer OTHER, SELFPAY ==
--- OUTSIDE RECORDS SUMMARY | 2025-03-16 06:23 | XMS_ITS | Encounter Summary ---
Author Organization [facility] Address [address] [place] [address] Care Team Providers Care Automotive Generator Repairer Name Role Phone MineTaylor mayberry DO Primary Care Provider [phone] Reason for Referral * MRI/CAT/PET Scan (Routine) - Closed Specialty Diagnoses / Procedures Referred By Contac t Referred To Contact Radiology Diagnoses Family history of breast cancer Extremely dense tissue of both breasts on mammography Breast cancer screening, high risk patient Procedures MRI Breast Bilateral W WO Contrast Allison Coombs MD [address] [place] [address] Phone: tel: fax: [address] [phone] Referral ID Status Reason Start Date Expiration Date Visits Re quested Visits Authorized [id number] Closed 03/10/2024 04/09/2025 1 1 DING OPERATOR Reason for Visit * MRI/CAT/PET Scan (Routine) - Closed Specialty Diagnoses / Procedures Referred By Contac t Referred To Contact Radiology Diagnoses Family history of breast cancer Extremely dense tissue of both breasts on mammography Breast cancer screening, high risk patient Procedures MRI Breast Bilateral W WO Contrast Allison Coombs MD [address] [place] [address] Phone: tel: fax: [facility] [address] [facility] [place] [address] Referral ID Status Reason Start Date Expiration Date Visits Re quested Visits Authorized [id number] Closed 03/10/2024 04/09/2025 1 1 Encounter Details Date Type Department Care Team (Latest Contact Info) Description 03/16/2025 6:23 AM BLENDING OPERATOR - 03/16/2025 11:59 PM BLENDING OPERATOR Hospital Encounter [facility] [address] [place] [id number] Family history of breast cancer; Extremely dense tissue of both breasts on mammography; Breast cancer screening, high risk patient Discharge Disposition: Discharge to home or self care Social History Tobacco Use Types Packs/Day Years Used Date Smoking Tobacco: Never Smokeless Tobacco: Never Comments Unknown Sex and Gender Information Value Date Recorded Sex Assigned at Not on file Legal Sex Female 9:26 AM BLENDING OPERATOR Gender Identity Female 02/10/2021 1:27 PM CDT Sexual Orientation Straight 02/10/2021 1: 27 PM CDT documented as of this encounter Functional Status documented as of this encounter Medications at Time of Discharge cholecalciferol (VITAMIN D-3) 2,000 unit tablet daily. LOW-OGESTREL, 28, 0.3-30 mg-mcg per tablet TK 1 T PO D 0 01/23/2018 documented as of this encounter Discharge Disposition Disposition Code Departure Means Destination Discharge to home or self care documented in this encounter Plan of Treatment Not on file documented as of this encounter Procedures Procedure Name Priority Date/Time Associated Diagnosis Comments MRI BREAST BILATERAL W WO CONTRAST Schedule Routine, Read Routine (OP Routine) 03/16/2025 7:24 AM BLENDING OPERATOR Family history of breast cancer Extremely dense tissue of both breasts on mammography Breast cancer screening, high risk patient documented in this encounter Results * MRI Breast Bilateral W WO Contrast (03/16/2025 7:24 AM BLENDING OPERATOR) Anatomical Region Laterality Modality Breast Bilateral Magnetic Resonan ce 03/16/2025 11:1 9 AM BLENDING OPERATOR Impressions 03/16/2025 4:05 PM BLENDING OPERATOR No MR evidence of malignancy in either breast. OVERALL FINAL ASSESSMENT: BI-RADS Category 2: Benign. RECOMMENDATION: Annual screening mammography and breast MRI are recommended. Dictated by: Jossue Ramos MD The radiology attending physician has personally reviewed this study, and had reviewed and/or edited this written report and agrees with it. Electronically signed by: Michelle Lam M.D. Narrative 03/16/2025 4:05 PM BLENDING OPERATOR EXAMINATION: 1. MRI EXAMINATION OF THE BREASTS WITH AND WITHOUT CONTRAST 2. 3D POST PROCESSING ON A DEDICATED 3D WORKSTATION HISTORY: High-risk Screening. 44-year-old woman with elevated lifetime risk of breast cancer (32%) secondary to family history . 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 TECHNIQUE: MRI examination of the breasts per breast tumor protocol with and without gadolinium contrast. A dedicated breast imaging coil was used. The images were transferred to a breast CAD system for 3D post processing and contrast kinetics analysis. CONTRAST: Gadoterate meglumine, 18 ml COMPARISON: Breast MRI 03/10/2024 BREAST COMPOSITION: Extreme fibroglandular tissue BACKGROUND PARENCHYMAL ENHANCEMENT: Moderate FINDINGS: There are 2 right breast and 2 left breast oval, circumscribed, T2 hyperintense masses with varying degrees of enhancement and central susceptibility artifact, consistent with biopsy-proven fibroadenomas. No new suspicious enhancing mass or nonmass enhancement in EITHER breast. No abnormally enlarged lymph nodes are identified in the visualized portions of either axilla. Trace right pleural fluid appears similar to multiple prior exams including 02/01/2023. Allison Coombs MD IMG MRI PROCEDURES Final Re sult documented in this encounter Visit Diagnoses Diagnosis Family history of breast cancer Family history of malignant neoplasm of breast Extremely dense tissue of both breasts on mammography Breast cancer screening, high risk patient Screening mammogram for high-risk patient documented in this encounter Administered Medications Active Administered Medications - up to 3 most recent administrations Medication Order MAR Action Action Date Dose Rate Site sodium chloride 0.9% flush 20 mL 20 mL, intravenous, As needed, line care, Starting on Sat03/16/25 at 0700 Given 03/16/2025 7:12 AM BLENDING OPERATOR 20 mL Inactive Administered Medications - up to 3 most recent administrations Medication Order MAR Action Action Date Dose Rate Site gadoterate meglumine injection 18 mL 18 mL, intravenous, Once in imaging, contrast, Starting on Sat03/16/25 at 0659, For 1 dose Contrast Given 03/16/2025 7:11 AM BLENDING OPERATOR 18 mL documented in this encounter Care Teams Automotive Generator Repairer Relationship Specialty Start Date End Date Taylor Simons DO PCP - General 02/03/20 documented as of this encounter
--- OUTSIDE RECORDS SUMMARY | 2025-03-16 10:40 | XMS_ITS | Encounter Summary ---
Author Organization [facility] Address [address] [facility] [address] [place] [address] Phone Care Team Providers Care Boiler/Chiller Operator Name Role Phone Taylor Simnos DO Primary Care Provider +1- [phone] Reason for Referral * MRI/CAT/PET Scan (Routine) - Pending Review Specialty Diagnoses / Procedures Referred By Controme t Referred To Contact Radiology Diagnoses Family history of breast cancer Extremely dense tissue of both breasts on mammography Breast cancer screening, high risk patient Inconclusive mammogram due to dense breasts Procedures MRI Breast Bilateral W WO Contrast Allison Coombs MD [address] [place] [address] Phone: tel: fax: [address] [address] Referral ID Status Reason Start Date Expiration Date V isits Requested Visits Authorized [id number] Pending Review 03/16/2025 04/15/2026 1 1 F CHEMIST * Diagnostic Imaging (Routine) - Authorized Specialty Diagnoses / Procedures Referred By Contac t Referred To Contact Diagnoses Screening mammogram for breast cancer Procedures Screening Mammogram Bilateral W Sam Allison Coombs MD [address] [place] [address] Phone: tel: fax: [facility] [address] [place] [address] Referral ID Status Reason Start Date Expiration Date V isits Requested Visits Authorized [id number] Authorized 03/16/2025 04/15/2026 1 1 F CHEMIST Reason for Visit * Reason Comments Follow-up Encounter Details Date Type Department Care Team (Late st Contact Info) Description 03/16/2025 10:40 AM CHIEF CHEMIST Office Visit [facility] Medicine Oncology [address] [place] [phone] Allison Coombs MD [address] [place] [address] Increased risk of breast cancer (Primary Dx); Screening mammogram for breast cancer; Family history of breast cancer; Extremely dense tissue of both breasts on mammography; Breast cancer screening, high risk patient; Inconclusive mammogram due to dense breasts Social History Tobacco Use Types Packs/Day Years Used Date Smoking Tobacco: Never Smokeless Tobacco: Never Comments Unknown Sex and Gender Information Value Date Recorded Sex Assigned at Not on file Legal Sex Female 9:26 AM CHIEF CHEMIST Gender Identity Female 02/10/2021 1:27 PM CDT Sexual Orientation Straight 02/10/2021 1: 27 PM CDT documented as of this encounter Last Filed Vital Signs Vital Sign Reading Time Taken Comments Blood Pressure 142/84 03/16/2025 8:58 AM CHIEF CHEMIST Pulse 69 03/16/2025 8:58 AM CHIEF CHEMIST Temperature 36.6 C (97.8 F) 03/16/2025 8:58 AM CHIEF CHEMIST Respiratory Rate 18 03/16/2025 8:58 AM CHIEF CHEMIST Oxygen Saturation 99% 03/16/2025 8:58 AM CHIEF CHEMIST Inhaled Oxygen Concentration - - Weight 96.2 kg (212 lb) 03/16/2025 8:57 AM CHIEF CHEMIST Height 171.5 cm (5' 7.52) 03/16/2025 8:57 AM CS T Body Mass Index 32.69 03/16/2025 8:57 AM CHIEF CHEMIST documented in this encounter Functional Status documented as of this encounter Progress Notes * Allison Coombs MD - 03/16/2025 10:40 AM CST Images from the original note were not included. DIAGNOSIS Lifetime risk 32.6% based on family history She's been followed as high risk by Dr. Suero and has needed multiple biopsies. No current complaints. She and her sister have talked about genetic testing but do have concerns about future insurance issues, unintended consequences/unexpected findings, etc. 03/10/24: Sees PCP today and UTD with packaging specialist. A little more emotional and worried today about the MRI. 03/16/25: UTD WWE. No perimenopausal symptoms yet. Understandably a little extra nervous this time of year and year to year. A little bit of tenderness in the far lateral right breast, but otherwise no symptoms. Risk assessment data: G 0 P 0 First parity: NA Menarche: 12. Menopause premenopausal. Contraception (if premenopausal): OCP Bx history: x 3 revealing fibroadenomas, stromal fibrosis, UDH Past medical history: Patient Active Problem List Diagnosis Increased risk of breast cancer History of vitamin D deficiency Family history of breast cancer Extremely dense tissue of both breasts on mammography Breast cancer screening, high risk patient Encounter for screening mammogram for breast cancer Inconclusive mammogram due to dense breasts No past medical history on file. Past surgical history: History reviewed. No pertinent surgical history. 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 Low-Ogestrel (28), TK 1 T PO D Family history of cancer: She has a sister doing high risk screening No genetic testing yet. Her mother (Teena Lopez, a patient of Dr. Mohamud) diagnosed in June 2005 with breast cancer at theage of 50 and succumbed to her disease, with negative genetic testing (2008 or earlier so likely BRCA only). Cancer was - / - / + and advanced at diagnosis. One maternal aunt diagnosed within the past couple years with CRC, late 60s. 2 maternal uncles No malignancy in any maternal cousins Maternal grandmother with lung cancer. Nonsmoker. MGF of heart disease. Father alive and well. 2 paternal aunts, one with breast cancer at 47, ER+, patient of Dr. Kohli, treated with BCT and 10 years of endocrine therapy that she just finished. BRCA- . Possible updated testing. 1 paternal uncle. No paternal cousins with malignancy. PGF with non-Hodgkin's lymphoma felt to be due to [employer] [place]. at 71. Paternal grandmother's sister (great aunt), breast cancer No AJ Scanned pedigree 03/06/22 Review of systems: Review of Systems Exam Vitals: 03/16/25 0857 03/16/25 0858 BP: 142/84 BP Location: Right arm Pulse: 69 Resp: 18 Temp: 36.6 ??C (97.8 ??F) TempSrc: Temporal SpO2: 99% Weight: 96.2 kg (212 lb) Height: 171.5 cm (5' 7.52) Body mass index is 32.69 kg/m??. Physical Exam Constitutional: Appearance: She is well-developed. HENT: Head: Normocephalic and atraumatic. Eyes: General: No scleral icterus. Conjunctiva/sclera: Conjunctivae normal. Neck: Thyroid: No thyromegaly. Cardiovascular: Rate and Rhythm: Normal rate. Pulmonary: Effort: Pulmonary effort is normal. No respiratory distress. Breath sounds: Normal breath sounds. No stridor. Chest: Breasts: Breasts are symmetrical. Right: No inverted nipple, mass, nipple discharge, skin change or tenderness. Left: No inverted nipple, mass, nipple discharge, skin change or tenderness. Abdominal: Palpations: Abdomen is soft. Tenderness: There is no guarding. Musculoskeletal: General: No deformity. Normal range of motion. Cervical back: Normal range of motion and neck supple. Lymphadenopathy: Cervical: No cervical adenopathy. Upper Body: Right upper body: No supraclavicular or axillary adenopathy. Left upper body: No supraclavicular or axillary adenopathy. Skin: General: Skin is warm and dry. Findings: No erythema or rash. Neurological: Mental Status: She is alert and oriented to person, place, and time. Psychiatric: Behavior: Behavior normal. Thought Content: Thought content normal. Judgment: Judgment normal. The patient was offered a unit technician to be present for the sensitive female breast exam and the patient declined a unit technician. Imaging/data review: Breast imaging bilateral screening mammography 02/21/21 at [facility]. BI-RADS 1. Extremely dense. breast MRI 02/23/22 at [facility]. BI-RADS 2. Bilateral similar-appearing oval masses, 2 on the right and 1 on t he he left previously biopsied fibroadenomas. bilateral screening mammography 03/02/22 at [facility]. BI-RADS 1. Heterogeneously dense. Breast MRI 02/01/23, BI-RADS 2. Stable bilateral enhancing masses. Bilateral screening mammography 08/12/23, BI-RADS 1. Extremely dense. Volpara D. Breast MRI 03/10/24, BI-RADS 2. Stable multiple bilateral masses. Bilateral screening mammography 08/12/24, BI-RADS 1. Extremely dense. Volpara D. Breast MRI 03/16/25, BI-RADS pending. Other imaging reports and data reviewed: Left breast US-guided biopsy 02/12/17 revealed a hyalinized fibroadenoma with UDH Right breast US-guided biopsy 08/21/17 revealed a fibroadenoma, stromal fibrosis, and UDH; a second site also revealed a fibroadenoma with stromal fibrosis Office notes from Dr. Suero Vitamin-D 02/22/22 47 Risk Assessment: As of 03/06/22 Barb Luna est lifetime risk 32.6% (scanned) Barb Luna est 10 year risk 5.9% Ewa estimated 5-year risk is 3.2%. Barb Luna updated 03/16/25, lifetime risk 44.8% with a 10 year risk of 11.1%. Her prior calculation incorporated heterogeneously dense tissue. Assessment/Plan: Elevated lifetime breast cancer risk We recommend annual breast MRI for women whose lifetime risk is > 20% , so she is eligible. She derives additional benefit given her dense breasts. She previously had a lot of anxiety with testing and therefore did her MRI and mammogram at the same time of year. She was later agreeable to staggering the two. Now that she has not had such frequent biopsies, she is comfortable to continue the staggered approach. It was just a lot of testing those 1st few years. Premenopausal with an elevated 5 year risk of breast cancer or with ER+ DCIS Eligible for endocrine prophylaxis She knows this is an option but that it wouldn't have reduced the risk of her mother's cancer. (Arie knows that, if she did develop cancer, it wouldn't necessarily also be ER-. We spent a little bit of time discussing this 03/16/25, especially in light of her eligibility for the [facility] trial. I will send her some information to review, and she will look this over with her and who is an interventional radiologist working with breast disease. Currently she is not having any perimenopausal symptoms. On an OCP which is allowed in [facility]. At risk for hereditary cancer; candidate for genetic testing Meets the following criteria for testing: Family history of early onset breast cancer. Her paternal aunt is an active patient of Dr. Kohli so almost certainly has had updated testing, butI asked Halle to confirm. Her mother likely had BRCA testing only, so Halel, her sister, and other maternal relatives could consider testing; Halle's mother is and we are unable to update her testing. Halle isn't sure how it would change things for her at this point and understands potential insurance implications (we previously reviewed those as well). She and her sister know that this is an option but are not interested at this time. We previously discussed that her maternal aunt may qualify for testing depending on her CRC path. We did not revisit this today. SUMMARY Last appointment: 03/16/25 Last mammogram: 08/12/24 Last MRI: 03/16/25 Return to clinic: Feb 2026 Mammogram: Due Jul 2025 MRI: Due Feb 2026 I encouraged Halle, who seems happy with this plan, to contact me with any questions or concerns, and all questions were answered to the best of my ability. My total encounter time on 03/16/25 was 20 minutes which was spent in the activities documented in the note. This includes time spent prior to the visit and after the visit in direct care of the patient. This time does not include time spent in any separately reportable services. Allison Coombs MD, FACS Medical Oncology [facility] F CHEMIST documented in this encounter Plan of Treatment Scheduled Orders Name Type Priority Associated Diagnoses Orde r Schedule Screening Mammogram Bilateral W Sam Imaging Schedule Routine, Read Routine (OP Routine) Screening mammogram for breast cancer Expected: 08/16/2025 (Approximate), Expires: 05/15/2026 MRI Breast Bilateral W WO Contrast Imaging Schedule Routine, Read Routine (OP Routine) Family history of breast cancer Extremely dense tissue of both breasts on mammography Breast cancer screening, high risk patient Inconclusive mammogram due to dense breasts Expected: 03/21/2026 (Approximate), Expires: 06/19/2026 documented as of this encounter Visit Diagnoses Diagnosis Increased risk of breast cancer- Primary Screening mammogram for breast cancer Family history of breast cancer Family history of malignant neoplasm of breast Extremely dense tissue of both breasts on mammography Breast cancer screening, high risk patient Screening mammogram for high-risk patient Inconclusive mammogram due to dense breasts Inconclusive mammogram documented in this encounter Orders Appointment Requests Count Last Ordered Date Fi rst Ordered Date ON[facility]N CLINIC APPOINTMENT REQUEST 2 025 documented in this encounter Care Teams Boiler/Chiller Operator Relationship Specialty Start Date End Date Taylor Simons DO PCP - General 02/03/20 documented as of this encounter
[2025-03-16 18:43] LABS: Add Urine Microscopic? YES; Appearance Urine Clear (Clear); Glucose Urine UA Negative (Negative); Leukocyte Esterase Ur Negative LEU/UL (Negative); Nitrate Urine Negative (Negative); Non Pathogenic Casts 0-2; Specific Grav Ur 1.007 (1.001-1.035)
--- OUTSIDE RECORDS SUMMARY | 2025-03-17 02:44 | XMS_ITS | Clinical Summary ---
Author Organization [facility] Address [address] [facility] [address] [place] [address] Care Team Providers Care Training Personnel Supervisor Name Role Phone MinesukhwinderTaylor lynch Primary Care Provider +1- [phone] Allergies Active Allergy Reactions Criticality Noted Date Comments Sulfa (Sulfonamide Antibiotics) Medications LOW-OGESTREL, 28, 0.3-30 mg-mcg per tablet TK 1 T PO D 0 01/23/2018 Active cholecalciferol (VITAMIN D-3) 2,000 unit tablet daily. Active Active Problems Problem Noted Date Diagnosed Date Inconclusive mammogram due to dense breasts 02/27 Family history of breast cancer 03/06/2022 Extremely dense tissue of both breasts on mammog rex 03/06/2022 Breast cancer screening, high risk patient 03/06 Encounter for screening mammogram for breast can cer 03/06/2022 Increased risk of breast cancer 02/10/2019 History of vitamin D deficiency 02/10/2019 Resolved Problems Problem Noted Date Diagnosed Date Resolved Date Encounter to discuss test results 02/10/2019 03/10/2024 Encounters Date Type Department Care Team Description 03/16/2025 10:40 AM FIELD ENGINEER Office Visit [facility] Medicine Oncology [address] [place] [address] NomaAllison aguirre MD Increased risk of breast cancer (Primary Dx); Screening mammogram for breast cancer; Family history of breast cancer; Extremely dense tissue of both breasts on mammography; Breast cancer screening, high risk patient; Inconclusive mammogram due to dense breasts 03/16/2025 6:23 AM FIELD ENGINEER - 03/16/2025 11:59 PM FIELD ENGINEER Hospital Encounter [facility] [address] [place] [address] Family history of breast cancer; Extremely dense tissue of both breasts on mammography; Breast cancer screening, high risk patient Discharge Disposition: Discharge to home or self care 03/16/2025 Results Follow-Up [facility] Medicine Physicians [facility] Oncology [address] [place] [address] [address] [place] [address] MalvinAllison aguirre MD MRI Breast Bilateral W WO Contrast from Last 3 Months Immunizations Immunization Administration Dates Next Due Pfizer SARS-CoV-2 Monovalent Vaccination (12+ Yrs) PURPLE 01/18/2023,01/26/2022,05/20/2020,2020 Family History Medical History Relation Name Comments Breast cancer Father's Sister genetic magdalena ting negative Lung cancer Maternal Grandmother nonsmok er Breast cancer Mother BRCA negative Colon cancer Mother's Sister Relation Name Status Comments Father Alive Father's Sister Alive Maternal Grandmother Mother Mother's Sister Alive Sister Alive Social History Tobacco Use Types Packs/Day Years Used Date Smoking Tobacco: Never Smokeless Tobacco: Never Comments Unknown Sex and Gender Information Value Date Recorded Sex Assigned at Not on file Legal Sex Female 9:26 AM FIELD ENGINEER Gender Identity Female 02/10/2021 1:27 PM CDT Sexual Orientation Straight 02/10/2021 1: 27 PM CDT Last Filed Vital Signs Vital Sign Reading Time Taken Comments Blood Pressure 142/84 03/16/2025 8:58 AM FIELD ENGINEER Pulse 69 03/16/2025 8:58 AM FIELD ENGINEER Temperature 36.6 C (97.8 F) 03/16/2025 8:58 AM FIELD ENGINEER Respiratory Rate 18 03/16/2025 8:58 AM FIELD ENGINEER Oxygen Saturation 99% 03/16/2025 8:58 AM FIELD ENGINEER Inhaled Oxygen Concentration - - Weight 96.2 kg (212 lb) 03/16/2025 8:57 AM FIELD ENGINEER Height 171.5 cm (5' 7.52) 03/16/2025 8:57 AM CS T Body Mass Index 32.69 03/16/2025 8:57 AM FIELD ENGINEER Plan of Treatment Health Maintenance Due Date Last Done Comments Cervical Cancer Screening 1980 Depression Screening 1980 Hepatitis C Screening 1980 DTaP/Tdap/Td Vaccine (1 - Tdap) 11/19/1991 Varicella Vaccines (1 of 2 - 13+ 2-dose series) 1993 Hepatitis B Screening 1998 Regular Well Visit/Exam 18-64 1998 HPV Vaccines (1 - 3-dose SCDM series) 11/19/2007 Breast Cancer Screening-Mammogram 08/12/2025 08/12/2024, 08/12/2023, 03/02/2022, Additional history exists Covid-19 Vaccine Completed 01/29/2025, 02/2024, 01/18/2023, Additional history exists Influenza Vaccine Completed 01/29/2025, 02/07/2024 Pneumococcal vaccine <65 Aged Out No longer eligible based on patient's age to complete this topic Procedures Procedure Name Priority Date/Time Associated Diagnosis Comments MRI BREAST BILATERAL W WO CONTRAST Schedule Routine, Read Routine (OP Routine) 03/16/2025 7:24 AM FIELD ENGINEER Family history of breast cancer Extremely dense tissue of both breasts on mammography Breast cancer screening, high risk patient SCREENING MAMMOGRAM BILATERAL W SAM Schedule Routine, Read Routine (OP Routine) 08/12/2024 8:06 AM CDT Screening mammogram for breast cancer Encounter for screening mammogram for breast cancer from Last 3 Months or Most Recently Relevant to Health Maintenance Results * MRI Breast Bilateral W WO Contrast (03/16/2025 7:24 AM FIELD ENGINEER) Anatomical Region Laterality Modality Breast Bilateral Magnetic Resonan ce 03/16/2025 11:1 9 AM FIELD ENGINEER Impressions 03/16/2025 4:05 PM FIELD ENGINEER No MR evidence of malignancy in either breast. OVERALL FINAL ASSESSMENT: BI-RADS Category 2: Benign. RECOMMENDATION: Annual screening mammography and breast MRI are recommended. Dictated by: Jossue Ramos MD The radiology attending physician has personally reviewed this study, and had reviewed and/or edited this written report and agrees with it. Electronically signed by: Michelle Lam M.D. Narrative 03/16/2025 4:05 PM FIELD ENGINEER EXAMINATION: 1. MRI EXAMINATION OF THE BREASTS [...] MD IMG MRI PROCEDURES Final Re sult * Screening Mammogram Bilateral W Sam (08/12/2024 8:06 AM CDT) Anatomical Region Laterality Modality Breast Bilateral Mammography Narrative 08/12/2024 9:37 AM CDT Mammogram Technique: Bilateral Digital Breast Tomosynthesis, Bilateral C-view 2D Screening mammogram. Views obtained: bilateral craniocaudal and bilateral mediolateral oblique. Computer Aided Detection was performed. Mammogram Findings: The present examination has been compared to prior imaging studies performed at [facility] on 02/21/2021, 03/02/2022 and 08/12/2023. The breasts are extremely dense, which lowers the sensitivity of mammography. There is no suspicious abnormality in either breast. Impression: There is no mammographic evidence of malignancy. Annual screening mammography is recommended. Consider breast MRI for supplemental screening given the patient's extremely dense breast tissue. OVERALL FINAL ASSESSMENT: BI-RADS CATEGORY 1: Negative. Procedure Note Shakir Paniagua MD - 08/12/2024 Mammogram Technique: Bilateral Digital Breast Tomosynthesis, Bilateral C-view 2D Screening mammogram. Views obtained: bilateral craniocaudal and bilateral mediolateral oblique. Computer Aided Detection was performed. Mammogram Findings: The present examination has been compared to prior imaging studies performed at [facility] on 02/21/2021, 03/02/2022 and 08/12/2023. The breasts are extremely dense, which lowers the sensitivity of mammography. There is no suspicious abnormality in either breast. Impression: There is no mammographic evidence of malignancy. Annual screening mammography is recommended. Consider breast MRI for supplemental screening given the patient's extremely dense breasttissue. OVERALL FINAL ASSESSMENT: BI-RADS CATEGORY 1: Negative. Allison Coombs MD IMG MAMMO PROCEDURES Final Result from Last 3 Months or Most Recently Relevant to Health Maintenance Insurance [employer] [facility] CHOICE [employer]US [employer] Care Teams Training Personnel Supervisor Relationship Specialty Start Date End Date Taylor Simons DO PCP - General 02/03/20
--- OUTSIDE RECORDS SUMMARY | 2025-03-17 02:44 | XMS_ITS | Encounter Summary ---
Author Organization [facility] Address [address] [place] [address] Phone Care Team Providers Care Live In Companion Name Role Phone Taylor Simons DO Primary Care Provider +1- [phone] Encounter Details Date Type Department Care Team (Late st Contact Info) Description 03/16/2025 Results Follow-Up [facility] [place] [facility] [address] [place] [address] [address] [place] [address] MalvinAllison aguirre MD [address] [place] [address] MRI Breast Bilateral W WO Contrast Social History Tobacco Use Types Packs/Day Years Used Date Smoking Tobacco: Never Smokeless Tobacco: Never Comments Unknown Sex and Gender Information Value Date Recorded Sex Assigned at Not on file Legal Sex Female 9:26 AM VASCULAR NURSE Gender Identity Female 02/10/2021 1:27 PM CDT Sexual Orientation Straight 02/10/2021 1: 27 PM CDT documented as of this encounter Functional Status documented as of this encounter Plan of Treatment Not on file documented as of this encounter Visit Diagnoses Not on filedocumented in this encounter Care Teams Live In Companion Relationship Specialty Start Date End Date Taylor Simons DO PCP - General 02/03/20 documented as of this encounter
--- OUTSIDE RECORDS SUMMARY | 2025-03-17 02:46 | XMS_ITS | Encounter Summary ---
Author Organization [facility] Address [address] [place] [address] Care Team Providers Care Inserting Machine Operator Name Role Phone Taylor Simons DO Primary Care Provider +1- [phone] Encounter Details Date Type Department Care Team (Late st Contact Info) Description 06/24/2020 Telephone [facility] - Imaging [address] [place] [address] Transcribed Order, Provider Social History Tobacco Use Types Packs/Day Years Used Date Smoking Tobacco: Never Smokeless Tobacco: Never Comments Unknown Sex and Gender Information Value Date Recorded Sex Assigned at Not on file Legal Sex Female 9:26 AM AIRCRAFT MAINTENANCE MANAGER Gender Identity Female 02/10/2021 1:27 PM CDT Sexual Orientation Straight 02/10/2021 1: 27 PM CDT documented as of this encounter Plan of Treatment Not on file documented as of this encounter Visit Diagnoses Not on filedocumented in this encounter Additional Health Concerns Infection Onset Date Last Indicated Resolved Time COVID: Suspected 10/18/2021 10/18/2021 10/18/2021 4:44 PM CDT COVID19 10/18/2021 10/18/2021 10/28/2021 3:05 AM CDT COVID: Recovered Comment:Added based on recent COVID infection. 10/28/2021 01/29/2022 02/25/2022 3:05 AM C DT documented as of this encounter Care Teams Inserting Machine Operator Relationship Specialty Start Date End Date Taylor Simons DO PCP - General 02/03/20 documented as of this encounter
== END 2025-03-16 15:19 | disposition home or self-care (01) ==
PROVIDERS: PCP Family Medicine; Visit Provider Nurse Practitioner Family
DX: Z87.440 Personal history of urinary (tract) infections (principal)
CPT/HCPCS: 81001